=== PATIENT | female | born 1965 | race Hispanic/Latino ===

== ENCOUNTER 2017-09-16 08:01 | Emergency (ER) | payer BC, OTHER ==
[2017-09-16] MEDS ORDERED: KETOROLAC TROMETHAMINE 30MG/ML ONE (08:25)
[2017-09-16 09:16] LABS: APPEARANCE,URINE Cloudy (CLEAR); BILIRUBIN,URINE Negative (NEGATIVE); COLOR,URINE Yellow (YELLOW); GLUCOSE, URINE (UA) Negative (NEGATIVE); KETONES,URINE Negative (NEGATIVE); LEUKOCYTE ESTERASE ,URINE Moderate (NEGATIVE); NITRATE,URINE Negative (NEGATIVE); OCCULT BLOOD,URINE Small (NEGATIVE); PH,URINE 6.5 (5.0-8.0); PROTEIN,URINE Negative (NEGATIVE); UROBILINOGEN,URINE 0.2 mg/dL (0.2-1.0)
[2017-09-16 09:31] LABS: BACTERIA,URINE Few /HPF (None Seen); RBC,URINE 0-1 /HPF (0-1)
[2017-09-16] MEDS ORDERED: ORPHENADRINE CITRATE 30 MG/ML ML ONE (09:40)
[2017-11-07] MEDS ORDERED: ASPI-1197 PO (15:16)
== END 2017-09-16 10:49 | disposition home or self-care (01) ==
LOC: EDH 08:01
DX: S13.4XXA Sprain of ligaments of cervical spine, initial encounter (principal); S33.5XXA Sprain of ligaments of lumbar spine, initial encounter; S80.02XA Contusion of left knee, initial encounter; K80.20 Calculus of gallbladder without cholecystitis without obstruction; Z87.891 Personal history of nicotine dependence; V49.49XA Driver injured in collision with other motor vehicles in traffic accident, initial encounter; Y93.89 Activity, other specified; Y92.89 Other specified places as the place of occurrence of the external cause; Y99.8 Other external cause status
CPT/HCPCS: 72040; 72100; 73502; 73562; 81001; 96372 ×2; 99285; J1885; J2360

== ENCOUNTER 2018-04-12 00:37 | Emergency (ER) | payer OTHER ==
[~2018-04-12 00:37] MED LIST: ASPI-1197 PO
[2018-04-12] MEDS ORDERED: ASPIRIN 325 MG TABLET ONE (01:01)
[2018-04-12] MEDS ORDERED: IPRATROPIUM/ALBUTEROL SULFATE 3 ML SOLUTION IH ONE (01:30)
[2018-04-12 01:34] LABS: BASOPHILS % (AUTO) 1.2 % (0.0-5.0); EOSINOPHILS % (AUTO) 4.6 % (0.0-8.0); HEMATOCRIT 37.5 % (36-48); LYMPHOCYTES % (AUTO) 28.5 % (21.0-51.0); MEAN CORPUSCULAR HEMOGLOBIN 28.7 pg (27.0-33.0); MEAN CORPUSCULAR HGB CONC 33.1 g/dL (32.0-36.0); MEAN CORPUSCULAR VOLUME 86.6 fL (79-99); MONOCYTES % (AUTO) 8.5 % (3.0-13.0); NEUTROPHILS % (AUTO) 57.2 % (40.0-77.0); NUCLEATED RED BLOOD CELLS 0.1 % (0.0-0.19); PLATELET COUNT (AUTO) 348 K/uL (130-400); RED BLOOD CELL COUNT(AUTO) 4.33 MIL/uL (4.00-5.50); WHITE BLOOD COUNT (AUTO) 9.4 K/uL (4.8-10.8)
[2018-04-12 01:43] LABS: CREATININE 0.7 mg/dL (0.5-1.5)
[2018-04-12 01:46] LABS: INR 0.92 (0.85-1.15); PROTHROMBIN TIME 9.7 SEC (9.6-11.6)
[2018-04-12 01:54] LABS: ALBUMIN 3.4 g/dL (3.5-5.0); BILIRUBIN,TOTAL 0.2 mg/dL (0.2-1.0); TOTAL PROTEIN, SERUM 6.8 g/dL (6.0-8.3)
[2018-04-12] MEDS ORDERED: BENZONATATE 100 MG CAPSULE PO ONE (02:09)
[2018-04-12] MEDS ORDERED: MORPHINE SULFATE 2 MG/ML 1ML SYG ONE (02:09)
[2018-04-12] MEDS ORDERED: KETOROLAC TROMETHAMINE 30MG/ML ONE (02:54)
[2018-04-12] MEDS ORDERED: SODIUM CHLORIDE 0.9% 1000ML 1,000 ML IV ONE (02:54)
== END 2018-04-12 03:53 | disposition home or self-care (01) ==
LOC: EDH 00:37
DX: S29.011A Strain of muscle and tendon of front wall of thorax, initial encounter (principal); J20.9 Acute bronchitis, unspecified; Z90.49 Acquired absence of other specified parts of digestive tract; X58.XXXA Exposure to other specified factors, initial encounter; Y93.89 Activity, other specified; Y92.89 Other specified places as the place of occurrence of the external cause; Y99.8 Other external cause status
CPT/HCPCS: 36415; 71045; 71046; 80053; 82550; 82948; 83874; 84484; 85025; 85610; 85730; 93005; 94640; 96374; 96375; 99284; J1885; J7030

== ENCOUNTER 2019-01-17 08:05 | Day surgery (SDC) | payer OTHER ==
--- NOTE | 2019-01-17 08:30 | NUR ---
PRE-PROCEDURE RECEIVED FROM HOME TO DAY 3 VIA AMBULATING FOR SCHEDULED CT GUIDED LIVER BX. AWAKE IN NO ACUTE DISTRESS. DENIES PAIN. PER PT CHRONIC HISTORY OF ABDOMINAL PAIN, DIARRHEA/CONSTIPATION BEING FOLLOWED BY MANAGER WEB APPLICATION. SIDE RAILS UP X2, BED IN LOWEST POSITION, AND CALL LIGHT W/IN REACH.
[2019-01-17 08:42] LABS: BASOPHILS % (AUTO) 1.2 % (0.0-5.0); HEMATOCRIT 40.4 % (36-48); LYMPHOCYTES % (AUTO) 36.7 % (21.0-51.0); MEAN CORPUSCULAR HEMOGLOBIN 28.8 pg (27.0-33.0); MEAN CORPUSCULAR HGB CONC 33.4 g/dL (32.0-36.0); MEAN CORPUSCULAR VOLUME 86.3 fL (79-99); MONOCYTES % (AUTO) 7.4 % (3.0-13.0); NEUTROPHILS % (AUTO) 48.7 % (40.0-77.0); NUCLEATED RED BLOOD CELLS 0.1 % (0.0-0.19); PLATELET COUNT (AUTO) 323 K/uL (130-400); RED BLOOD CELL COUNT(AUTO) 4.68 MIL/uL (4.00-5.50); WHITE BLOOD COUNT (AUTO) 4.6 K/uL (4.8-10.8)
[2019-01-17 08:49] LABS: CREATININE 0.7 mg/dL (0.5-1.5); POTASSIUM 4.5 mmol/L (3.5-5.1)
[2019-01-17 09:02] LABS: INR 0.93 (0.85-1.15); PARTIAL THROMBOPLASTIN TIME 24.9 SEC (26.3-35.5); PROTHROMBIN TIME 9.8 SEC (9.6-11.6)
[2019-01-17] MEDS ORDERED: SODIUM CHLORIDE 0.9% 1000ML 1,000 ML IV ONE (09:34)
--- NOTE | 2019-01-17 09:40 | NUR ---
PROCEDURE TRANSFERRED TO RADIOLOGY VIA STRETCHER BY DELILAH. AWAKE IN NO ACUTE DISTRESS.
[2019-01-17] MEDS ORDERED: FENTANYL CITRATE PF 50 MCG/1 ML 2ML VIAL ONE (10:10)
[2019-01-17] MEDS ORDERED: MIDAZOLAM HCL 1 MG/ML 2ML VIAL ONE (10:10)
[2019-01-17] MEDS ORDERED: IOHEXOL-350 75 ML VIAL IV ONE (11:17)
[2019-01-17] MEDS ORDERED: IOHEXOL 350 MG/ML 100ML INFUS..BTL IV ONE (12:04)
--- NOTE | 2019-01-17 12:40 | NUR ---
CT GD LIVER BX PROCEDURE PERFORMED BY DR Dylon MEDLEY. PUNCTURE SITE RUQ AND PATIENT TOLERATED PROCEDURE WELL. SPECIMEN X 3 COLLECTED AND SENT TO LAB. END OF PROCEDURE AT 1215. BIOPSY NEEDLE REMOVED AND DRESSING APPLIED. NO BLEEDING NOTED. REPORT GIVEN TO Steff NUNEZ RN AND PATIENT TRANSPORTED TO DAY PATIENT VIA STRETCHER AT 1240. AAO X3 WITH C/O DISCOMFORT TO BIOPSY SITE. FENTANYL 25MCG IV GIVEN FOR PAIN AT 1235
--- NOTE | 2019-01-17 12:45 | NUR ---
POST-PROCEDURE RECEIVED FROM RADIOLOGY S/P CT GUIDED LIVER BX. AWAKE IN NO ACUTE DISTRESS. CONNECTED TO CONTINUOUS CARDIOPULMONARY MONITORING. DRESSING TO LUQ ABDOMEN CD&I. NS INFUSING AT 50ML/HR. SIDE RAILS UP X2, BED IN LOWEST POSITION, AND CALL LIGHT W/IN REACH.
--- NOTE | 2019-01-17 14:30 | NUR ---
DISCHARGE DAY PT DISCHARGE INSTRUCTION SHEET, RADIOLOGY DISCHARGE INSTRUCTIONS, AND PT SUMMARY REVIEWED WITH PT. PT VERBALIZED UNDERSTANDING. DRESSING TO LUQ ABDOMEN CD&I. PT INSTRUCTED TO RETURN TO ER FOR EXCESSIVE BLEEDING/SEVERE PAIN. PT VERBALIZED UNDERSTANDING.
--- NOTE | 2019-01-17 14:40 | NUR ---
DISCHARGE DISCHARGED VIA W/C. AWAKE IN NO ACUTE DISTRESS.
== END 2019-01-17 14:40 | disposition home or self-care (01) ==
LOC: DAH 08:05
PROVIDERS: ATTEND Emergency Medicine Emergency Medical Services
DX: K76.89 Other specified diseases of liver (principal); R93.2 Abnormal findings on diagnostic imaging of liver and biliary tract; Z79.899 Other long term (current) drug therapy; Z87.891 Personal history of nicotine dependence; Z72.89 Other problems related to lifestyle
CPT/HCPCS: 36415; 47000; 77012; 80048; 85025; 85610; 85730; 88307; A4215; A4216; A4221; A4222; A4223 ×3; A4606; J2250; J3010; J7030; Q9967 ×2; 99152; 99153

== ENCOUNTER 2019-01-19 01:02 | Observation (INO) | payer OTHER ==
[~2019-01-19] VITALS: Ht 157.5 cm; Wt 58.5 kg
[2019-01-19] MEDS ORDERED: MORPHINE SULFATE 4 MG/1ML SYG ONE ×2 (01:24→02:11)
[2019-01-19] MEDS ORDERED: ONDANSETRON HCL 4 MG/2 ML VIAL ONE ×2 (01:24→08:39)
[2019-01-19] MEDS ORDERED: SODIUM CHLORIDE 0.9% 1000ML 1,000 ML IV ONE ×2 (01:27→08:00)
[2019-01-19 01:32] LABS: BASOPHILS % (AUTO) 0.5 % (0.0-5.0); EOSINOPHILS % (AUTO) 5.6 % (0.0-8.0); HEMATOCRIT 39.9 % (36-48); LYMPHOCYTES % (AUTO) 28.8 % (21.0-51.0); MEAN CORPUSCULAR HEMOGLOBIN 28.9 pg (27.0-33.0); MEAN CORPUSCULAR HGB CONC 33.3 g/dL (32.0-36.0); MEAN CORPUSCULAR VOLUME 86.8 fL (79-99); MONOCYTES % (AUTO) 7.8 % (3.0-13.0); NEUTROPHILS % (AUTO) 57.3 % (40.0-77.0); PLATELET COUNT (AUTO) 296 K/uL (130-400); RED BLOOD CELL COUNT(AUTO) 4.59 MIL/uL (4.00-5.50); RED CELL DISTRIBUTION WIDTH 14.1 % (11.0-15.5); WHITE BLOOD COUNT (AUTO) 6.8 K/uL (4.8-10.8)
[2019-01-19 01:49] LABS: INR 0.95 (0.85-1.15); PARTIAL THROMBOPLASTIN TIME 25.2 SEC (26.3-35.5)
[2019-01-19 01:56] LABS: ALBUMIN 3.8 g/dL (3.5-5.0); BILIRUBIN,TOTAL 0.5 mg/dL (0.2-1.0); POTASSIUM 3.9 mmol/L (3.5-5.1); TOTAL PROTEIN, SERUM 7.7 g/dL (6.0-8.3)
[2019-01-19 02:03] LABS: CREATININE 0.7 mg/dL (0.5-1.5)
[2019-01-19] MEDS ORDERED: HYDROMORPHONE 1 MG/1 ML AMP ONE (03:43)
[2019-01-19] MEDS: SODIUM CHLORIDE 0.9% 1000ML 1,000 ML IV SCH ×2 (06:22→21:12)
[2019-01-19] MEDS ORDERED: ONDANSETRON HCL 4 MG/2 ML VIAL IV PRN (06:30)
[2019-01-19] MEDS ORDERED: ACETAMINOPHEN 325 MG TAB PO PRN ×2 (06:30)
[2019-01-19] MEDS ORDERED: CYCLOBENZAPRINE HCL 10 MG TABLET ONE (07:59)
[2019-01-19] MEDS ORDERED: FAMOTIDINE/PF 20 MG/2 ML VIAL IV ONE (08:00)
[2019-01-19] MEDS ORDERED: ENOXAPARIN SODIUM 30 MG/0.3 ML SQ SCH ×2 (09:00)
[2019-01-19] MEDS: FAMOTIDINE/PF 20 MG/2 ML VIAL IV SCH ×2 (09:00→21:12)
[2019-01-19] MEDS: CYCLOBENZAPRINE HCL 10 MG TABLET PO SCH ×3 (09:00→21:11)
[2019-01-19 11:30] VITALS: BP 124/67
[2019-01-19 16:00] VITALS: BP 111/54
[2019-01-19 20:00] VITALS: BP 106/54
[2019-01-20] VITALS: BP 108/54
[2019-01-20] MEDS: SODIUM CHLORIDE 0.9% 1000ML 1,000 ML IV SCH (02:22)
[2019-01-20 04:00] VITALS: BP 103/55
[2019-01-20 04:41] LABS: BASOPHILS % (AUTO) 0.5 % (0.0-5.0); EOSINOPHILS % (AUTO) 9.3 % (0.0-8.0); LYMPHOCYTES % (AUTO) 43.4 % (21.0-51.0); MEAN CORPUSCULAR HEMOGLOBIN 29.1 pg (27.0-33.0); MEAN CORPUSCULAR HGB CONC 33.3 g/dL (32.0-36.0); MEAN CORPUSCULAR VOLUME 87.4 fL (79-99); MONOCYTES % (AUTO) 6.1 % (3.0-13.0); NEUTROPHILS % (AUTO) 40.7 % (40.0-77.0); PLATELET COUNT (AUTO) 263 K/uL (130-400); RED BLOOD CELL COUNT(AUTO) 4.01 MIL/uL (4.00-5.50); RED CELL DISTRIBUTION WIDTH 13.8 % (11.0-15.5)
[2019-01-20 04:55] LABS: ALBUMIN 2.9 g/dL (3.5-5.0); BILIRUBIN,TOTAL 0.3 mg/dL (0.2-1.0); CREATININE 0.7 mg/dL (0.5-1.5); POTASSIUM 4.1 mmol/L (3.5-5.1); TOTAL PROTEIN, SERUM 6.2 g/dL (6.0-8.3)
[2019-01-20 05:47] LABS: ERYTHROCYTE SEDIMENTATION RATE 9 MM/HR (0-30)
[2019-01-20 07:56] VITALS: BP 103/55
[2019-01-20] MEDS: CYCLOBENZAPRINE HCL 10 MG TABLET PO SCH (09:00)
[2019-01-20] MEDS: FAMOTIDINE/PF 20 MG/2 ML VIAL IV SCH (09:21)
[2019-01-20] MEDS ORDERED: CYCL10TA7 PO (10:32)
== END 2019-01-20 12:16 | disposition home or self-care (01) ==
LOC: EDH 01:02 → INTOOBSV 04:15 → EDHIP 04:15 → 4AH 11:34
PROVIDERS: ADMIT Internal Medicine; ATTEND Internal Medicine
DX: M25.511 Pain in right shoulder (principal); M54.2 Cervicalgia; K76.89 Other specified diseases of liver; Z90.49 Acquired absence of other specified parts of digestive tract; Z79.82 Long term (current) use of aspirin; Z79.899 Other long term (current) drug therapy
CPT/HCPCS: 36415 ×2; 71045; 73030; 80053 ×2; 82550; 83874; 84484; 85025 ×2; 85610; 85651; 85730; 86140; 93005; 96374; 96376; 99284; G0378 ×30; J1170; J2270 ×2; J2405 ×2; J3490 ×3; J7030 ×2

== ENCOUNTER 2022-01-08 09:05 | Emergency (ER) | payer OTHER ==
[~2022-01-08] VITALS: Ht 170.2 cm; Wt 61.2 kg
[~2022-01-08 09:05] MED LIST changes: -ASPI-1197 PO; +CYCL-309 PO
[2022-01-08 09:07] VITALS: BP 137/61
[2022-01-08] MEDS ORDERED: IBUP-2070 PO (09:28)
[2022-01-08] MEDS ORDERED: NIRM1TAB5 PO (09:28)
[2022-01-08] MEDS ORDERED: D-ME118S47 PO (09:28)
== END 2022-01-08 09:51 | disposition home or self-care (01) ==
LOC: EDH 09:05
DX: J02.9 Acute pharyngitis, unspecified (principal); R05.9 Cough, unspecified; Z20.822 Contact with and (suspected) exposure to COVID-19; Z79.1 Long term (current) use of non-steroidal anti-inflammatories (NSAID)
CPT/HCPCS: 99283; 87635; C9803

== ENCOUNTER 2022-01-11 08:05 | Emergency (ER) | payer OTHER ==
[~2022-01-11] VITALS: Ht 157.5 cm; Wt 61.2 kg
[~2022-01-11 08:05] MED LIST changes: +D-ME118S47 PO; +IBUP-2070 PO; +NIRM1TAB5 PO
[2022-01-11] MEDS ORDERED: IPRATROPIUM/ALBUTEROL SULFATE 3 ML SOLUTION IH STA (09:12)
[2022-01-11 10:31] VITALS: BP 117/58
[2022-01-11] MEDS ORDERED: ALBU8.5H8 IH (10:41)
[2022-01-11] MEDS ORDERED: NIRM1TAB PO (10:41)
== END 2022-01-11 10:45 | disposition home or self-care (01) ==
LOC: EDH 08:05
DX: U07.1 COVID-19 (principal); Z79.1 Long term (current) use of non-steroidal anti-inflammatories (NSAID)
CPT/HCPCS: 99283; 87635; 87804 ×2; 94640; C9803

== ENCOUNTER 2022-01-13 09:34 | Emergency (ER) | payer OTHER ==
[~2022-01-13] VITALS: Ht 157.5 cm; Wt 61.2 kg
[~2022-01-13 09:34] MED LIST changes: +ALBU8.5H8 IH; +NIRM1TAB PO
[2022-01-13 09:40] VITALS: BP 126/76
== END 2022-01-13 10:26 | disposition home or self-care (01) ==
LOC: EDH 09:34
DX: U07.1 COVID-19 (principal); J02.9 Acute pharyngitis, unspecified; Z79.899 Other long term (current) drug therapy; Z98.890 Other specified postprocedural states
CPT/HCPCS: 99283; 87635; 87880; 87804 ×2; C9803